=== PATIENT | male | born 1985 | race Caucasian/White ===

== ENCOUNTER → 2017-12-26 08:37 | Outpatient (CLI) | payer OTHER, SELFPAY ==
--- NOTE | 2017-12-26 08:40 | MR_ITS ---
MR thoracic spine wo con Ordering Physician: Jimmy Uriarte Patient Age: 32 years: Male HISTORY: ITS.REASON: CHRONIC LEFT LUMBAR RADICULOPATHY Mid and low back pain. Since 2002. Bilateral leg and feet pain numbness and tingling. Previous S1 fusion. March 2016 TECHNIQUE: Sagittal T1-T2 STIR with axial T1 and T2 imaging at selected levels of the T-spine. Performed on 1.5 Trice Siemens, MRI COMPARISON : FINDINGS Vertebral bodies intact no compression fracture nor lesion. Disc spaces are well-maintained. The lower most C-spine at C6 /C7 & C7/T1 disc intact as are the disc at upper T-spine to the T3 level -. Unremarkable At. T3/4. There is a small mainly hard disc protrusion seen right paracentral slightly indenting thecal sac to the right of midline, sagittal image 7. Continued does not encroach upon the foramen Perhaps scant narrowing at T6/7 disc but is intact posteriorly . The other disc levels unremarkable.. The thoracic cord normal caliber and signal. No paraspinal abnormalities appreciated. IMPRESSION: T-spine. No prominent findings. Only note small hard disc to the right at T3/4; very slightly indents thecal sac to the right
== END ==
PROVIDERS: PCP Internal Medicine; Visit Provider Anesthesiology Pain Medicine
DX: M54.16 Radiculopathy, lumbar region (principal)
CPT/HCPCS: 72146

== ENCOUNTER 2019-01-04 08:30 | Outpatient (RCR) | payer OTHER, SELFPAY | END 2019-01-04 08:35 | disposition home or self-care (01) | LOC: PT 08:30 | PROVIDERS: Visit Provider Nurse Practitioner Family | DX: M54.9 Dorsalgia, unspecified (principal); M79.18 Myalgia, other site | CPT/HCPCS: 97010; 97014; 97035; 97110; 97140; 97163; 97164; G0283 ==

== ENCOUNTER → 2019-02-09 10:11 | Outpatient (CLI) | payer OTHER, SELFPAY ==
--- NOTE | 2019-02-09 10:19 | XR_ITS ---
PROCEDURE: XR CHEST 2V CLINICAL HISTORY: CHRONIC COUGH,ABN CXR COMPARISON: SPTHORWO MR thoracic spine wo con from 12/26/2017 FINDINGS: The cardiomediastinal silhouette and pulmonary vascularity are within normal limits. No lobar consolidation or collapse. There is a faint nodular opacity in the right upper lobe overlying the 2nd interspace anteriorly possibly due to summation artifact from overlapping vessels. Stability may be confirmed with follow-up. There are no old exams available for review. Minimal atelectatic change present in the left mid lower lung zone. Epidural stimulator device noted over the lower thoracic spine. No acute bony abnormalities. IMPRESSION: No acute findings. Dictated by: Marquise Hooper MD 02/09/2019 10:51 Electronically signed by Marquise Hooper MD in [place] 02/09/2019 10:51
== END ==
PROVIDERS: PCP Internal Medicine; Visit Provider Internal Medicine
DX: R05 Cough (principal); R93.89 Abnormal findings on diagnostic imaging of other specified body structures
CPT/HCPCS: 71046

== ENCOUNTER → 2021-06-15 13:12 | Outpatient (CLI) | payer MEDICARE, SELFPAY ==
[2021-06-15 14:03] LABS: Basophils # 0.1 K/mm3 (0-0.2); Eosinophils # 0.1 K/mm3 (0.0-0.4); Eosinophils % 1.9 % (0.1-12.0); Hematocrit 48.1 % (42.0-52.0); Lymphocytes # 1.1 K/mm3 (0.7-4.5); Lymphocytes % 24.6 % (10-50); Mean Corpuscular HGB Conc 33.4 g/dL (31.8-35.4); Mean Corpuscular Hemoglobin 32.1 pg (27.0-31.2); Mean Corpuscular Volume 96.3 fl (80-94); Mean Platelet Volume 8.7 fl (7.4-10.4); Monocytes # 0.4 K/mm3 (0.1-1.0); Monocytes % 8.2 % (1.7-9.3); Neutrophils % 64.3 % (37.0-80.0); Platelet Count 331 K/mm3 (142-424); Red Blood Count 4.99 M/mm3 (4.60-6.20); Red Cell Distribution Width 14.3 % (11.5-17.5); White Blood Count 4.6 K/mm3 (4.8-10.8)
[2021-06-15 14:48] LABS: Chloride 106 mmol/L (98-107); Sodium 138 mmol/L (136-145)
[2021-06-15 14:50] LABS: Blood Urea Nitrogen 12 mg/dl (9-20); Estimated Glomerular Filt Rate 111 ml/min (>60); GFR (African American) 134 ML/MIN (>60)
[2021-06-15 14:51] LABS: Alanine Aminotransferase 47 U/L (12-78); Albumin Level 4.2 g/dl (3.5-5.0); Albumin/Globulin Ratio 1.8 (1.1-1.8); Alkaline Phosphatase 91 U/L (38-126); Aspartate Amino Transferase 38 U/L (17-59); Bilirubin,Total 0.8 mg/dl (0.2-1.3); Calcium 8.5 mg/dl (8.4-10.2); Carbon Dioxide 26 mmol/L (22.0-30.0); Chol/HDL Ratio 6.8 (1-3.5); Cholesterol 224 mg/dl (140-200); Globulin 2.3 g/dL (1.3-3.2); Glucose 80 mg/dl (74-100); HDL Cholesterol 33 mg/dl (40-60); Total Protein,Serum 6.5 g/dl (6.3-8.2); Triglycerides 105 mg/dl (30-150); VLDL Cholesterol 21 mg/dL (0-40)
[2021-06-15 15:06] LABS: Direct LDL Cholesterol 167.26 mg/dL (100-129)
== END ==
PROVIDERS: PCP Internal Medicine; Visit Provider Internal Medicine
DX: R10.32 Left lower quadrant pain (principal); K58.0 Irritable bowel syndrome with diarrhea; E78.5 Hyperlipidemia, unspecified
CPT/HCPCS: 80053; 80061; 85025

== ENCOUNTER → 2021-06-25 12:45 | Outpatient (CLI) | payer MEDICARE, SELFPAY ==
--- NOTE | 2021-06-25 12:52 | CT_ITS ---
FINAL REPORT TECHNIQUE: Axial images through the abdomen and pelvis were performed without contrast. This study was performed with techniques to keep radiation doses as low as reasonably achievable, (ALARA). Individualized dose reduction techniques using automated exposure control or adjustment of mA and/or kV according to the patient's size were employed. CLINICAL HISTORY: LLQ PAIN,ABD PAIN FINDINGS: Abdomen: There is atelectasis in the left lung base. There is mild diffuse fatty infiltration of the liver. The gallbladder is present. The spleen, pancreas, adrenals are unremarkable. There is a tiny nonobstructing mid right renal stone. Pelvis: The urinary bladder is unremarkable. The appendix is unremarkable. There is no pelvic mass or inflammation. There is fusion hardware bridging the left SI joint causing streak artifact. IMPRESSION: Nonobstructing right renal stone. Fatty infiltration of the liver. No inflammatory process. Reviewed, Interpreted and Dictated by Tony Orourke MD Transcribed by Jose Choudhury Authenticated by Tony Orourke MD on 06/25/2021 02:32:01 PM [facility]
== END ==
PROVIDERS: PCP Internal Medicine; Visit Provider Internal Medicine
DX: R10.32 Left lower quadrant pain (principal); R10.30 Lower abdominal pain, unspecified
CPT/HCPCS: 74176

== ENCOUNTER → 2021-07-07 14:55 | Outpatient (CLI) | payer MEDICARE, SELFPAY | PROVIDERS: Visit Provider Internal Medicine Gastroenterology | DX: U07.1 COVID-19 (principal); R10.32 Left lower quadrant pain | CPT/HCPCS: C9803; U0003; U0005 ==

== ENCOUNTER 2023-07-05 10:41 | Outpatient (CLI) | payer MEDICARE, SELFPAY ==
[2023-07-05 11:13] LABS: Basophils % 1.2 % (0.1-2.0); Eosinophils % 0.3 % (0.1-12.0); Hematocrit 46.3 % (42.0-52.0); Hemoglobin 15.2 g/dL (14.1-18.0); Lymphocytes # 0.7 K/mm3 (0.7-4.5); Lymphocytes % 20.4 % (10-50); Mean Corpuscular HGB Conc 32.9 g/dL (31.8-35.4); Mean Corpuscular Hemoglobin 31.7 pg (27.0-31.2); Mean Corpuscular Volume 96.3 fl (80-94); Mean Platelet Volume 7.3 fl (7.4-10.4); Monocytes # 0.3 K/mm3 (0.1-1.0); Monocytes % 9.2 % (1.7-9.3); Neutrophils # 2.3 K/mm3 (1.8-7.8); Platelet Count 205 K/mm3 (142-424); Red Blood Count 4.81 M/mm3 (4.60-6.20); Red Cell Distribution Width 14.2 % (11.5-17.5); White Blood Count 3.3 K/mm3 (4.8-10.8)
[2023-07-05 11:34] LABS: Alanine Aminotransferase 43 U/L (12-78); Albumin Level 4.3 g/dl (3.5-5.0); Alkaline Phosphatase 80 U/L (38-126); Anion Gap 12.5 mEq/L (5-15); Aspartate Amino Transferase 33 U/L (17-59); Bilirubin,Total 1.2 mg/dl (0.2-1.3); Blood Urea Nitrogen 9 mg/dl (9-20); Calcium 9.1 mg/dl (8.4-10.2); Carbon Dioxide 27 mmol/L (22.0-30.0); Chloride 102 mmol/L (98-107); Estimated Glomerular Filt Rate 109 ml/min (>60); GFR (African American) 132 ML/MIN (>60); Globulin 2.2 g/dL (1.3-3.2); Glucose 101 mg/dl (74-100); Potassium 4.5 mmoL/L (3.5-5.1); Sodium 137 mmol/L (136-145); Total Protein,Serum 6.5 g/dl (6.3-8.2)
== END 2023-07-05 23:59 | disposition home or self-care (01) ==
LOC: LAB.DROPOF 10:42
PROVIDERS: PCP Internal Medicine; Visit Provider Internal Medicine
DX: R10.32 Left lower quadrant pain (principal); R50.9 Fever, unspecified
CPT/HCPCS: 80053; 85025

== ENCOUNTER 2023-07-05 11:17 | Outpatient (CLI) | payer MEDICARE, SELFPAY ==
--- NOTE | 2023-07-05 11:26 | CT_ITS ---
FINAL REPORT TECHNIQUE: Axial CT images of the abdomen were obtained without contrast. Coronal and sagittal reformatted images were also obtained.This study was performed with techniques to keep radiation doses as low as reasonably achievable (ALARA). Individualized dose reduction techniques using automated exposure control or adjustment of mA and/or kV according to the patient''s size were employed. CLINICAL HISTORY: DIVERTICULITIS, FEVER, LLQ PAIN COMPARISON: 06/25/2021 FINDINGS: Mild scarring is present in the lung bases. There is fatty infiltration of the liver. The gallbladder appears normal without evidence of gallstones. There is no evidence of biliary ductal dilatation. The pancreas appears normal. The spleen size is within normal limits. There is a 3 mm nonobstructing right renal stone present, but no evidence of hydronephrosis is identified. The appendix is normal in appearance. There are postoperative changes in the pelvis with 2 screws present in the sacrum and iliac wings. There is no evidence of adenopathy. There is a tiny amount of free fluid present in the pelvis, likely reactive. No localized inflammatory processes identified. IMPRESSION: Fatty infiltration of the liver. 3 mm nonobstructing right renal stone without evidence of hydronephrosis. Tiny amount of free fluid present in the pelvis. Reviewed, Interpreted and Dictated by Paras Hansen III, MD Transcribed by Dianna Fernandez Authenticated and [facility]
[2023-07-05] MEDS: DIATRIZOATE MEGLUMINE(GASTROGRAFIN) 66%-10% 120ML 30 ML PO (13:31)
== END 2023-07-05 23:59 | disposition home or self-care (01) ==
LOC: RAD 11:22
PROVIDERS: PCP Internal Medicine; Visit Provider Internal Medicine
DX: K57.92 Diverticulitis of intestine, part unspecified, without perforation or abscess without bleeding (principal); R50.9 Fever, unspecified; R10.32 Left lower quadrant pain
CPT/HCPCS: 74176; 80053; 85025